=== PATIENT | female | born 1995 | race Hispanic/Latino ===

== ENCOUNTER 2023-05-10 01:06 | Emergency (ER) | payer BC ==
[~2023-05-10] VITALS: Ht 157.5 cm; Wt 126.6 kg
[2023-05-10 01:10] VITALS: BP 121/75
== END 2023-05-10 04:46 | disposition left against medical advice (07) ==
LOC: EDH 01:06
DX: M54.50 Low back pain, unspecified (principal); Z53.21 Procedure and treatment not carried out due to patient leaving prior to being seen by health care provider
CPT/HCPCS: 99281